=== PATIENT | male | born 1955 | race Caucasian/White ===

== ENCOUNTER 2025-04-04 15:55 | Emergency (ER) | payer MEDICARE, SELFPAY ==
--- NOTE | ~2025-04-04 | CT_ITS ---
EXAMINATION: CT HEAD WITHOUT CONTRAST CLINICAL INFORMATION: Fall with head strike. COMPARISON: None available. TECHNIQUE: Contiguous axial imaging was performed from the skull base to vertex without intravenous administration of contrast. This CT examination was performed using dose optimization techniques as appropriate, variously including the following: *Automated exposure control *Adjustment of mA and/or kV according to patient size (this includes techniques or standardized protocols for targeted exams where dose is matched to indication/reason for exam; i.e. extremities or head) *Use of iterative reconstruction technique FINDINGS: There is no evidence of intracranial hemorrhage or extra-axial fluid collection. There is no mass effect, or edema. No CT evidence of acute territorial infarct. Ventricles, sulci, and cisterns are normal in size and configuration for patient age. No hydrocephalus. No midline shift. Negative hyperdense MCA sign. Negative insular ribbon sign. Patchy periventricular and deep white matter hypoattenuation is consistent with mild to moderate small vessel ischemic changes. 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 Normal pituitary. Mild atheromatous calcification of the bilateral carotid siphons and V4 segments vertebral arteries bilaterally. Globes and orbital contents image normally. Extracranial soft tissues demonstrate a small left frontal scalp hematoma. The paranasal sinuses, mastoid air cells, and tympanic cavities are normally aerated. No suspicious bony abnormalities. Calvarium and skull base appears intact. There are comminuted mildly displaced nasal bone fractures, presumably acute. No additional fractures. CT/CT head/brain wo IV con IMPRESSION: 1. No acute intracranial abnormality. No calvarial or skull base fracture. 2. Comminuted mildly displaced nasal bone fractures, presumably acute. 3. Small left frontal scalp hematoma. Electronically signed by: Iván Royal MD 04/04/2025 04:35 PM EDT
--- NOTE | ~2025-04-04 | XR_ITS ---
EXAMINATION: Left hand and left wrist. CLINICAL INDICATION: Fall. Pain. COMPARISON: None. TECHNIQUE: 3 views left hand and 4 views left wrist. FINDINGS: LEFT HAND: There is mild loss of PIP and DIP joint spaces without bony erosive changes. No osteophytes, loose bodies are soft tissue swelling seen. There is no visible acute fracture or dislocation. LEFT WRIST: The carpal bones, intercarpal joints and carpometacarpal joints are normal. No fracture or dislocation seen. No abnormal joint effusion. Scaphoid bone appears intact. XR/XR hand LT min 3V IMPRESSION: Unremarkable left hand and left wrist exam. Electronically signed by: Simon Washington MD 04/04/2025 04:40 PM EDT
--- NOTE | ~2025-04-04 | XR_ITS ---
EXAMINATION: Left hand and left wrist. CLINICAL INDICATION: Fall. Pain. COMPARISON: None. TECHNIQUE: 3 views left hand and 4 views left wrist. FINDINGS: LEFT HAND: There is mild loss of PIP and DIP joint spaces without bony erosive changes. No osteophytes, loose bodies are soft tissue swelling seen. There is no visible acute fracture or dislocation. LEFT WRIST: The carpal bones, intercarpal joints and carpometacarpal joints are normal. No fracture or dislocation seen. No abnormal joint effusion. Scaphoid bone appears intact. XR/XR wrist LT min 3V IMPRESSION: Unremarkable left hand and left wrist exam. Electronically signed by: Simon Washington MD 04/04/2025 04:40 PM EDT
--- NOTE | ~2025-04-04 | CT_ITS ---
EXAMINATION: CT CERVICAL SPINE WITHOUT CONTRAST CLINICAL INFORMATION: Fall with head strike, neck pain/C-spine clearance. COMPARISON: None available. TECHNIQUE: Spiral CT imaging of the cervical spine performed in axial plane without contrast. Multiplanar reformatted images were constructed from the axial data set. This CT examination was performed using dose optimization techniques as appropriate, variously including the following: *Automated exposure control *Adjustment of mA and/or kV according to patient size (this includes techniques or standardized protocols for targeted exams where dose is matched to indication/reason for exam; i.e. extremities or head) *Use of iterative reconstruction technique FINDINGS: CORONAL ALIGNMENT: -There is a minimal right convex scoliosis, apex at C5. SAGITTAL ALIGNMENT: -Mild straightening of the normal lordosis is present. -No traumatic subluxation. -There is a 2 mm degenerative retrolisthesis of C5 on C6. C1-C2 AND CRANIOCERVICAL JUNCTION: -Intact and normally aligned. Mild to moderate degenerative changes of the anterior atlantoaxial joint. VERTEBRAL BODIES AND FACETS: -No definite fracture, compression deformity, or suspicious bone lesion. -Normal facet alignment bilaterally. There is fusion of the C3-4 facets on the right. There are multilevel hypertrophic degenerative facet changes bilaterally. DISCS: -Severe disc degeneration is present spanning C3-C6. -Disc spaces otherwise maintained. CENTRAL CANAL: -No evidence of high-grade central canal narrowing or large disc herniation allowing for modality limitations. -There is probable moderate central canal stenosis at C5-6. PREVERTEBRAL AND PARAVERTEBRAL SOFT TISSUES: -There is no prevertebral or paravertebral soft tissue edema, swelling, or abnormal fluid collection. -The thyroid gland is grossly normal. -There are moderate carotid bulb calcifications bilaterally. Retropharyngeal course of the right ICA. LUNG APICES: -Clear bilaterally. CT/CT cervical spine wo IV con IMPRESSION: 1. No CT evidence of acute cervical spine fracture or injury. 2. Moderate degenerative spondylosis most significant spanning C3-C6. Electronically signed by: Iván Royal MD 04/04/2025 04:41 PM EDT
[2025-04-04 15:59] VITALS: BP 204/98; PULSE 115; RESP 24; TEMP 35.6; O2SAT 98; BMI 32.1
--- NOTE | 2025-04-04 16:01 | ED.GENADULT ---
HPI - General Adult General Chief complaint: Fall Stated complaint: Fall Time Seen by Provider: 04/04/25 17:01 Source: patient Mode of arrival: ambulatory Limitations: no limitations History of Present Illness ED Provider: Dr. Davis Mo HPI narrative: 69-year-old male with no past medical history who presents to the emergency department for evaluation fall that occurred while he was walking down hill earlier today. Patient states that there was an unexpected incline and he gained speed going down the incline, this caused him to lose his balance and fall forward striking his face on the pavement. Patient denied any loss of consciousness. He states that he was helped up and since that time he has been able to walk without any difficulty. The patient does have abrasions to his forehead, upper lip and nose-these abrasions or bleeding. He is complaining of pain in his left hand and wrist. He denied headache, nausea, vomiting since the fall. He denied chest pain, back pain or abdominal pain. He has no lower extremity pain. The patient states that his doctor retired and he has not seen a doctor and a long time. He does not know in his last tetanus shot was given. Related Data Allergies Allergy/AdvReac Type Severity Reaction Status Date / Time No Known Allergies Allergy Verified 04/04/25 16:01 Review of Systems Review of Systems: Yes all other systems are reviewed and are negative [facility] Past Medical History [facility] Narrative: Social history: The patient is here in the emergency department with a his girlfriend. He occasionally drinks alcohol. He denies tobacco use. He denies drug use. Social History Social History Alcohol intake: former Smoked in Last 30 Days: No Use of substances other than those prescribed or required for medical reasons: No Advance Directives: No Advance Directives Information Provided: No Physical Exam ED Vital Signs: Vital Signs - 24 hr 04/04/25 15:59 Temperature 96.1 F L Pulse Rate 115 H Respiratory Rate 24 H Blood Pressure 204/98 H Pulse Oximetry 98 Oxygen Delivery Method Room Air BMI result Body Mass Index 32.1 Vital signs revealed an elevated blood pressure of 204/98 and elevated heart rate of 115. Exam: General: Awake, alert in no distress Head: Normocephalic, patient has a hematoma to his forehead with the abrasions to his forehead, cheeks bilaterally, upper lip. EENT: PERRL, sclera and conjunctiva are normal, mouth with no erythema or exudates Neck: Tender cervical spine, no adenopathy Lung: breath sounds symmetric, no wheezing, no rales and no rhonchi Chest: symmetric movement, nontender Heart: regular rate and rhythm, normal S1, S2 no murmurs or rubs Abdomen: soft, non-tender, nondistended, normal bowel sounds Back: no vertebral tenderness, no CVAT Extremities: no deformities, moves all extremities symmetrically, no edema, abrasions to his left hand over the 2nd and 3rd metacarpal bones, increased tenderness palpation over the 3rd metacarpal bone, no obvious deformity Neuro: Awake, alert, oriented, normal speech, cranial nerves 2-12 intact, moves all extremities symmetrically Psych: Pleasant, cooperative Course Course Course Narrative: This is a Rapid Medical Examination (RME) performed by Meena Tsang PA-C in triage. Full HPI, ROS, assessment and treatment plan per primary provider in the Main ED. Hx: Patient is a 69 yo male who presents s/p mechanical fall while walking down hill earlier today. reports falling onto his face. Denies use of ambulation assistance devices. Denies LOC and neck pain. Not on any blood thinners. Rates pain 3/10. also reports pain to L hand. PE/vitals: AOX3. Plan: imaging Medical Decision Making Medical Decision Making MDM Narrative: 69-year-old male with no past medical history who presents to the emergency department for evaluation fall that occurred while he was walking down hill earlier today. Patient states that there was an unexpected incline and he gained speed going down the incline, this caused him to lose his balance and fall forward striking his face on the pavement. Patient denied any loss of consciousness. He states that he was helped up and since that time he has been able to walk without any difficulty. The patient does have abrasions to his forehead, upper lip and nose-these abrasions or bleeding. He is complaining of pain in his left hand and wrist. He denied headache, nausea, vomiting since the fall. He denied chest pain, back pain or abdominal pain. He has no lower extremity pain. Patient had an elevated blood pressure and elevated heart rate. Physical examination revealed multiple abrasions to his face as well as hematoma to his forehead. Patient had abrasions to his left hand with tenderness palpation over the 2nd and 3rd metacarpals. No obvious deformity. Differential diagnosis: ?Includes but is not limited to skull fracture, intracranial bleed, cervical fracture, cervical sprain forehead scalp hematoma, facial abrasions, nasal abrasion, nasal fracture, left hand fracture, left wrist fracture Course: 17:[address] scan of his head and cervical spine revealed no intracranial bleed, fracture cervical fracture. The patient does have min of the displaced comminuted nasal bone fractures with no septal fracture. X-rays of the left hand and wrist revealed no acute fractures. Patient's abrasions were cleaned and dressed with bacitracin and nonstick dressing. Patient was given a Tdap IM vaccination in the emergency department. Patient was advised to apply bacitracin twice a day to his facial abrasions and to wash your signs of infection. I did discuss the nasal bone fractures with him and at this time I do not think that he is going to need further treatment. Patient did have elevated blood pressure and elevated heart rate. The patient was advised to check his blood pressure 3 times a week for the next 2-3 weeks and to establish care with a PCP to discuss possible treatment of elevated blood pressure. He was advised to take Tylenol for pain. He was given printed and verbal instructions and discharged home. Differential Diagnosis Differential Diagnoses: The differential diagnosis associated with the presentation includes (See above) Admission/Observation Consideration of admission/observation: Escalation of care including admission/observation considered (Yes) Radiology Impression Discussion of test interpretation with radiology: I have reviewed the radiologist's reading. Radiologist Impression: 3 views left hand and 4 views left wrist. FINDINGS: LEFT HAND: There is mild loss of PIP and DIP joint spaces without bony erosive changes. No osteophytes, loose bodies are soft tissue swelling seen. There is no visible acute fracture or dislocation. LEFT WRIST: The carpal bones, intercarpal joints and carpometacarpal joints are normal. No fracture or dislocation seen. No abnormal joint effusion. Scaphoid bone appears intact. XR/XR wrist LT min 3V IMPRESSION: Unremarkable left hand and left wrist exam. Electronically signed by: Simon Washington MD 04/04/2025 04:40 PM EDT 3 views left hand and 4 views left wrist. FINDINGS: LEFT HAND: There is mild loss of PIP and DIP joint spaces without bony erosive changes. No osteophytes, loose bodies are soft tissue swelling seen. There is no visible acute fracture or dislocation. LEFT WRIST: The carpal bones, intercarpal joints and carpometacarpal joints are normal. No fracture or dislocation seen. No abnormal joint effusion. Scaphoid bone appears intact. XR/XR hand LT min 3V IMPRESSION: Unremarkable left hand and left wrist exam. Electronically signed by: Simon Washington MD 04/04/2025 04:[address] head/brain wo IV con IMPRESSION: 1. No acute intracranial abnormality. No calvarial or skull base fracture. 2. Comminuted mildly displaced nasal bone fractures, presumably acute. 3. Small left frontal scalp hematoma. Electronically signed by: Iván Royal MD 04/04/2025 04:[address] cervical spine wo IV con IMPRESSION: 1. No CT evidence of acute cervical spine fracture or injury. 2. Moderate degenerative spondylosis most significant spanning C3-C6. Electronically signed by: Iván Royal MD 04/04/2025 04:41 PM EDT Independent Historian Clinical information obtained from an independent historian. History obtained from or confirmed by: Other (Girlfriend) Discharge Plan Discharge Clinical Impression: Contusion of dorsum of left hand, Need for tetanus, diphtheria, and acellular pertussis (Tdap) vaccine Closed head injury Qualifiers: Encounter type: initial encounter Qualified Code(s): S09.90XA - Unspecified injury of head, initial encounter Facial abrasion Qualifiers: Encounter type: initial encounter Qualified Code(s): S00.81XA - Abrasion of other part of head, initial encounter Closed fracture nasal bone Qualifiers: Encounter type: initial encounter Qualified Code(s): S02.2XXA - Fracture of nasal bones, initial encounter for closed fracture Contusion of left wrist Qualifiers: Encounter type: initial encounter Qualified Code(s): S60.212A - Contusion of left wrist, initial encounter Patient Disposition: Home, Self-Care Instructions: Abrasion (ED), Nasal Fracture (ED) Additional Instructions: Apply bacitracin twice a day to the abrasions on your face for 1 week to try to prevent an infection of these wounds Watch for signs of infection which would include increased redness, increased swelling, drainage of pus, red streaks going away from the wounds. If you think your wounds are infected you can follow up with a an urgent care clinic, your PCP or return to the emergency department for evaluation. You did break the bones of your nose, at this time I do not think that you need any further treatment however if you have difficulty breathing out of 1 side of your nose with the other then you may need to follow up with an ENT doctor for re-evaluation. The CT scan radiology impression is at the end of this note. The CT scan of your head and neck revealed no broken bones in your skull or neck and no bleeding in your brain. The x-rays of your left hand and left wrist revealed no broken bones. You received a tetanus, diphtheria and pertussis vaccination (Tdap) intramuscularly today. This has good for 5 years. Between 5 and 10 years you will need a another tetanus shot if you have a contaminated wound. You will need a booster shot in 10 years. Your blood pressure here in the emergency department was elevated at 204/98 (normal is 120/80). High blood pressure instructions: The reason to check your blood pressure at home is to give your provider an idea of what your blood pressure does when you are not in the provider's office. Take your blood pressure in the mornings, Mondays , Wednesdays and Fridays and then write down for the next 2-3 weeks. Make sure you only check your blood pressure in the mornings and do not repeat your blood pressure readings even if they are high. I want you to discuss these readings with your primary care provider If your provider thinks that your blood pressures are too high, then they may start you on a blood pressure medication. If you get started on blood pressure medication continue to take your blood pressure 3 times a week. You can take up to 2-6 weeks before blood pressure medication lower your high blood pressure medication or start you on a 2nd high blood pressure. Follow-up with your provider to discuss your blood pressure readings in 2 weeks Please return to the emergency department if your symptoms get worse or if you develop any new symptoms that are concerning to you. If you do not have a primary care provider - call any of the below numbers to establish and follow up with a primary care provider. [facility] PCP referral line ?for adult primary care and family practice medicine. [facility] [phone] [place] [id number] While waiting to establish your new primary care physician,for non-emergency needs you can go ?to: [facility](Urgent Care) . [address] [address] [facility](Urgent Care) provides services to ages 18 and over. Open Wednesday-Wednesday: 7 [address] head/brain wo IV con IMPRESSION: 1. No acute intracranial abnormality. No calvarial or skull base fracture. 2. Comminuted mildly displaced nasal bone fractures, presumably acute. 3. Small left frontal scalp hematoma. Electronically signed by: Iván Royal MD 04/04/2025 04:35 PM Print Language: Occitan
[2025-04-04 18:27] VITALS: BP 188/95; PULSE 108; RESP 16; TEMP 36.8; O2SAT 97
[2025-04-04] MEDS: Diphth,Pertus(ACell),Tet Adult 0.5 ML SYRINGE IM (18:44)
[2025-04-04 19:32] VITALS: BP 182/96; PULSE 100; RESP 18; TEMP 36.8; O2SAT 98
== END 2025-04-04 19:33 | disposition home or self-care (01) ==
PROVIDERS: Emergency Provider Emergency Medicine Emergency Medical Services
DX: S02.2XXA Fracture of nasal bones, initial encounter for closed fracture (principal); S00.81XA Abrasion of other part of head, initial encounter; S60.212A Contusion of left wrist, initial encounter; S00.03XA Contusion of scalp, initial encounter; M25.532 Pain in left wrist; R51.9 Headache, unspecified; M54.2 Cervicalgia; M79.642 Pain in left hand; W17.81XA Fall down embankment (hill), initial encounter; Z91.81 History of falling; Y93.01 Activity, walking, marching and hiking; Y92.9 Unspecified place or not applicable; Y99.8 Other external cause status; Z23 Encounter for immunization; Z79.899 Other long term (current) drug therapy
CPT/HCPCS: 70450; 72125; 73110; 73130; 90471; 90715; 99284

== ENCOUNTER → 2025-04-04 16:03 | Outpatient (BNV) | payer MEDICARE, SELFPAY | PROVIDERS: Emergency Provider Emergency Medicine Emergency Medical Services; Visit Provider Radiology Diagnostic Radiology | DX: M47.812 Spondylosis without myelopathy or radiculopathy, cervical region (principal); S00.03XA Contusion of scalp, initial encounter; S02.2XXA Fracture of nasal bones, initial encounter for closed fracture; M79.642 Pain in left hand; M25.532 Pain in left wrist; W19.XXXA Unspecified fall, initial encounter | CPT/HCPCS: 70450; 72125; 73110; 73130 ==

== ENCOUNTER 2025-05-04 15:46 | Outpatient (AMB) | payer MEDICARE, OTHER, SELFPAY ==
[2025-05-04 15:54] VITALS: BP 160/80; PULSE 88; TEMP 36.5; O2SAT 98
--- NOTE | 2025-05-04 15:54 | AM.OFFWIN_ITS ---
Intake Vital Signs 05/04/25 15:54 Height 6 ft BP 160/80 H Blood Pressure Location Lt brachial Position Sitting Pulse 88 Pulse Source Pulse Oximeter Temp 97.7 F Temp Source Oral Pulse Oximetry (%) 98 Intake Visit Reasons: RUN LEAD High BP 175/99, no headaches, no dizziness Allergies No Known Allergies Allergy (Verified 05/04/25 15:54) Do you need a note to return to daycare/school/sports/work: No HPI HPI Comments History of Present Illness Details History of Present Illness - The patient is a 69-year-old male pres enting with his with concerns about elevated blood pressure. - The patient experienced a fall while w alking to his vehicle, resulting in injuries that required emergency room evaluation. - During the emergency room visit, it wa s noted that the patient's blood pressure was elevated to 204/98. - The patient has a history of hypertens ion, previously managed with medications such as timolide and aldomet, but has not been under regular medical care since his primary care physician retired, many years ago. He has not taken any medications in many years. - The patient has not had a recent physi demond examination and is currently without a primary care physician. - Today, he denies any chest pain, dizzi ness, headaches or shortness of breath. Review of Systems - Neurological: Denies headaches, dizzin ess, or lightheadedness at the time of the fall. - Musculoskeletal: Reports knee pain and issues with foot mobility following the fall. All systems reviewed and are unremarkable except as noted in HPI Physical Exam General: Cooperative, healthy appearing, comfortable, no acute distress and well developed Orientation: Patient oriented x3 Limitations: ambulating with cane Head: Normal to inspection Ears: Hearing grossly normal bilaterally Nose: Normal External nose present Face and sinus: Normal facial exam Eyes: Appearance normal, both eyes and all related structures Neck: Normal visual inspection and Yes full ROM Respiratory: Normal respiratory effort and able to speak in complete sentences. Skin: No rashes or lesions noted Neuro: Patient oriented x3 Extremities: moving all extremities normally. PFSH Social History Alcohol intake: former Physical Exam Vital Signs: Last Vital Signs Temp 97.7 F 05/04/25 15:54 Pulse 88 05/04/25 15:54 BP 160/80 H 05/04/25 15:54 Pulse Ox 98 05/04/25 15:54 Assessment & Plan Assessment & Plan (1) Elevated blood pressure reading in office without diagnosis of hypertension: Code(s): R03.0 - Elevated blood-pressure reading, without diagnosis of hypertension Plan: Plan Patient was informed and verbally consented to the use of an ambient scribe for clinic note documentation during this visit. - The patient needs to establish care with a primary care physician for chronic uncontrolled hypertension. - Discussed the risks of uncontrolled hypertension, including kidney damage and increased risk of stroke. - Was able to obtain a new pt appt with Dr Abreu on 05/07 at 2:45pm, notified pt to call both of his ins co's and tell them Dr Abreu will be his new PCP, for billing and referral purposes. - If he has any acute changes over the weekend and develops any headaches, chest pain, shortness of breath or signs of a stroke, he should go to the Emergency Department. Coding Level of Care Code Est Pt Level 3 (86853) Diagnoses Elevated blood pressure reading in office without diagnosis of hypertension R03.0
== END 2025-05-04 16:23 | disposition home or self-care (01) ==
PROVIDERS: Visit Provider Physician Assistant
DX: R03.0 Elevated blood-pressure reading, without diagnosis of hypertension (principal)

== ENCOUNTER → 2025-05-04 15:46 | Outpatient (BNVA) | payer MEDICARE, OTHER, SELFPAY | PROVIDERS: Visit Provider Physician Assistant | DX: R03.0 Elevated blood-pressure reading, without diagnosis of hypertension (principal) | CPT/HCPCS: 99212 ==

== ENCOUNTER 2025-05-07 14:58 | Outpatient (AMB) | payer MEDICARE, OTHER, SELFPAY ==
--- NOTE | 2025-05-07 14:59 | A.OFFPC_ITS ---
Vital Signs 05/07/25 15:04 BP 178/92 H Blood Pressure Location Lt brachial Position Sitting Pulse 108 H Pulse Source Pulse Oximeter Temp 97.1 F Temp Source Temporal Artery Scan Pulse Oximetry (%) 100 Oxygen Delivery Method Room Air Intake Visit Reasons: Establish Care/New Patient Accompanied by: Spouse Allergies No Known Allergies Allergy (Verified 05/07/25 15:01) Medication List - Last Reconciled 05/07/25 by Marcus Abreu MD No Known Home Meds Tobacco use date assessed: 05/07/25 Fall risk assessment: 1 Fall in past year Last assessed Fall Risk: 05/07/25 Dental Screening Dental Screen Date: 05/07/25 Did you have a dental visit in the last 12 months?: No HPI HPI Comments History of Present Illness Details History of Present Illness The patient is a 69-year-old male presenting for a new patient visit for a health evaluation after not seeing a doctor for over 20 years. He has not had any blood work or been on any medications during this time. The patient reports a history of high blood pressure years ago, for which he was temporarily treated with Timolide but stopped the medication based on a doctor's recommendation. Past surgical history includes a shoulder surgery for an unspecified injury. He recently had a fall after his feet got tangled, causing him to land face-first on a tire. He did not lose consciousness and was evaluated with a CT scan and X- rays, which revealed surface abrasions. He also reports issues with his knee buckling and making noises when going down stairs. The patient has no known allergies and no family history of heart disease, diabetes, or cancer. He denies smoking or using illicit drugs and reports no alcohol consumption in the past six months, though he used to drink beer. Medical History: - Hypertension, previously treated on a temporary basis. - Recent fall with abrasions. Surgical History: - Shoulder surgery, date and procedure u nspecified. Medications: - The patient is not currently taking an y medications. Family History: - Denies family history of heart disease , diabetes, or cancer. Diagnostic Results: - Vital Signs:Blood pressure 178/92 mmHg . - Imaging: A CT scan, full body scan, an d bone x-rays were performed following a recent fall, with unspecified results. Social History - Substance Use: Denies smoking or illic it drug use. - Alcohol Use: Reports no alcohol consum ption in the past six months but previously drank beer. - Employment: Retired from the post offi ce five years ago. - Exercise: Engages in yard work and use s a seated elliptical. - Diet: Advised to reduce salt intake an d avoid processed foods. [facility] Medical History (Updated 05/07/25 @ 15:32 by Marcus Abreu MD) Knee pain Primary hypertension Family History (Updated 05/07/25 @ 15:01 by Dodie Swanson CMA) Mother No problems noted. Father No problems noted. Social History Housing: House Alcohol intake: former Patient Tobacco Use Status: Never used Tobacco service: No Current occupational status: employed and retired Cognitive needs: Yes (cane) Hearing needs: No Vision needs: No Questionnaire PHQ-9 Over the last 2 weeks, how often have you been bothered by any of the following problems? 1. Little interest or pleasure in doing things: not at all 2. Feeling down, depressed, or hopeless: not at all 3. Trouble falling or staying asleep, or sleeping too much: not at all 4. Feeling tired or having little energy: not at all 5. Poor appetite or overeating: not at all 6. Feeling bad about yourself - or that you are a failure or have let yourself or your family down: not at all 7. Trouble concentrating on things, such as reading the newspaper or watching television: not at all 8. Moving or speaking so slowly that other people could have noticed. Or the opposite - being so fidgety or restless that you have been moving around a lot more than usual: not at all 9. Thoughts that you would be better off or of hurting yourself in some way: not at all Total score: 0 Depression Screening Interpretation: Negative Depression Screening Done: Yes 74828 - PHQ-9 Billing: Yes Source: Developed by Drs. Bart Villalpando, Ciarra Luis, Bran Nielson and colleagues, with an educational guero from [employer]. Thrive Questionnaire Date Thrive assessed: 05/07/25 I am a: Patient What is your living situation today?: I have a steady place to live Within the past 12 months, did the food you bought not last and you didn't have the money to get more?: Never true Within the past 12 months, did you worry whether your food would run out before you got money to buy more?: Never true Do you have trouble paying for medicines?: No Do you have trouble getting transportation to medical appointments?: No Do you have trouble paying your heating and electricity bill?: No Do you have trouble taking care of your child, family member or friend?: No Do you have trouble with day-to-day activities such as bathing, preparing meals, shopping, managing finances, etc.?: No Are you currently unemployed and looking for a job?: No Are you interested in more education?: No THRIVE Score: 0 AUDIT C Alcohol Use Questionnaire (AUDIT-C) 1. How often do you have a drink containing alcohol?: Never Total Score: 0 Score Reviewed/Action Taken: Yes RUSTY-7 AMB Questionnaire RUSTY-7 Date RUSTY - 7 assessed: 05/07/25 Feeling nervous, anxious, or on edge: 0 = Not at all Not being able to stop or control worryin = Not at all Worrying too much about different things: 0 = Not at all Trouble relaxin = Not at all Being so restless that it is hard to sit still: 0 = Not at all Becoming easily annoyed or irritable: 0 = Not at all Feeling afraid as if something awful might happen: 0 = Not at all Total RUSTY-7 score (0-4 normal; 5-9 mild; 10-14 moderate; 15-21 severe): 0 Source: Developed by Drs. Bart Villalpando, Ciarra Luis, Bran Nielson and colleagues, with an educational guero from [employer]. RUSTY-7 Assessment Billing RUSTY-7 Assessment Tool: RUSTY-7 Assessment 14846 Review of Systems Narrative Review of Systems - Psychological: Denies depression or anxiety. - Cardiovascular: Denies chest pain. - Respiratory: Denies shortness of breath. - Gastrointestinal: Reports normal urination and bowel movements. Denies nausea and vomiting. - Musculoskeletal: Reports knee buckling and noises when descending stairs. - Neurological: Denies loss of consciousness with a recent fall. All systems reviewed & are unremarkable except as reviewed in HPI and above Physical exam (Primary Care) Vital Signs: Last Vital Signs Temp 97.1 F 05/07/25 15:04 Pulse 108 H 05/07/25 15:04 BP 178/92 H 05/07/25 15:04 Pulse Ox 100 05/07/25 15:04 Oxygen Delivery Method Room Air 05/07/25 15:04 Tobacco/Smoking Status: Tobacco use Status Tobacco use date assessed 05/07/25 05/07/25 15:07 Patient Tobacco Use Status Never used Tobacco 05/07/25 15:07 Depression Screening Interpretation: Negative Thrive Assessment: Date of Thrive Assessment Date Thrive assessed 05/07/25 05/07/25 15:07 Narrative Physical Exam General: +Alert and oriented, Well nourished, No acute distress. Eye: Pupils are equal, round and reactive to light, Intact accommodation, Extraocular movements are intact, Normal conjunctiva, Vision unchanged. HENT: Normocephalic, Atraumatic, Tympanic membranes are clear, Normal hearing, Oral mucosa is moist, No pharyngeal erythema, Ear canals patent. Respiratory: Lungs CTA bilaterally, No wheeze, Respirations are non-labored. Cardiovascular: Regular rate, Regular rhythm, S1 auscultated, S2 auscultated, No murmur, Good pulses equal in all extremities, Normal peripheral perfusion, No edema. Gastrointestinal: Soft, Non-tender, Non-distended, Normal bowel sounds, No organomegaly. Musculoskeletal: Normal range of motion, Normal strength, No tenderness, No swelling, No deformity, Normal gait. Left hand pain due to recent fall, x-ray o rdered for knee due to occasional buckling. Integumentary: Warm, Dry, [place], Intact. Abrasions present on hands, taped. Neurologic: Alert, Oriented, Normal sensory, Normal motor function, No focal defects, Cranial Nerves II-XII are grossly intact, Normal deep tendon reflexes. Psychiatric: Cooperative, Appropriate mood & affect, Normal judgment. No depression or anxiety reported. Office Procedures Flu Questionnaire Does the patient have a severe egg allergy?: No Does the patient have severe life threatening allergies?: No Does the patient have a fever or illness today?: No Has the patient ever had Guillain-[place] Syndrome?: No Has the patient ever had any past reaction to a flu shot?: No Immunizations Fluarix [id number] (PF) 45 mcg (15 mcg x 3)/0.5 mL IM syringe Performing Provider: Marcus Abreu MD Performing [place] [facility] Documented (not given) by: Dodie Swanson CMA on 05/07/25 15:08 Reason Not Given: Patient Refused Coding Level of Care Code New Pt Level 4 (70528) Diagnoses Primary hypertension I10 Acute pain of right knee M25.561 Chronicity: acute Laterality: right Additional Codes PHQ-9 - 98476 - PHQ-9 Billing: Yes ([id number]) RUSTY-7 Assessment Billing - RUSTY-7 Assessment Tool: RUSTY-7 Assessment 47282 ([id number]) Assessment & Plan Assessment & Plan (1) Primary hypertension: Comment: - The patient's blood pressure is severely elevated at 178/92 mmHg. - Initiate treatment with nifedipine 30 mg once daily. - Instructed the patient to monitor his blood pressure at home daily, one hour after taking the medication, and to bring the readings to his next appointment. - Provided counseling on dietary modifications, including reducing salt intake and avoiding processed foods to help lower blood pressure. - Schedule a follow-up appointment in one week to review blood pressure logs and adjust medications as necessary. Code(s): I10 - Essential (primary) hypertension Category: Medical (2) Knee pain: Comment: - The patient reports that his knee occasionally khoi and makes noise when descending stairs. - An X-ray of the knee is ordered to evaluate for underlying pathology. Code(s): M25.569 - Pain in unspecified knee Category: Medical Qualifiers: Chronicity: acute Laterality: right Qualified Code(s): M25.561 - Pain in right knee Plan: Health Maintenance: - Laboratory screening: Ordered comprehensive labs including CBC, electrolytes, kidney and liver function, glucose, hepatitis panel, HIV, cholesterol, syphilis screen, thyroid studies, and vitamin D level. - Cancer Screening: Recommended colonoscopy for colorectal cancer screening as the patient is 24 years overdue. The patient expressed hesitation and deferred the procedure. - Immunizations: Recommended influenza and COVID-19 vaccinations. - Healthy Lifestyle Counseling: Advised on reducing dietary salt, avoiding processed and junk foods, and eating more fresh foods to help manage blood pressure. Patient was informed and verbally consented to the use of an ambient scribe for clinic note documentation during this visit. Plan I have discussed with the patient that his blood pressure is severely elevated at 178/92 mmHg, necessitating immediate treatment. I prescribed nifedipine 30 mg daily and explained the importance of daily blood pressure monitoring at home, with a follow-up in one week to review the results and adjust the regimen as needed. We discussed dietary modifications, specifically reducing salt and avoiding processed foods. I ordered comprehensive baseline lab work and an x-ray of his knee to evaluate his complaint of instability. I also recommended a colonoscopy as a preventative screening measure, explaining the risks of delaying it, but the patient expressed hesitation and wished to defer the procedure. Finally, I recommended he receive his flu and COVID-19 shots. Orders: Orders Comprehensive Met. Panel Today Z00.00 - Encounter for general adult medical e xamination without abnormal findings Hepatitis A,B,C Profile Today Z00.00 - Encounter for general adult medical examination without abnormal findings Lipid Panel Today Z00.00 - Encounter for general adult medical examination without abnormal findings Syphilis Screen Today Z00.00 - Encounter for general adult medical examination without abnormal findings Vitamin D 25-OH Total Today Z00.00 - Encounter for general adult medical examination without abnormal findings XR knee RT 4V Today I10 - Essential (primary) hypertension, M25.569 - Pain in unspecified knee Influenza [id number] Immunization Today Z23 - Encounter for immunization Complete Blood Count Auto Diff Today Z00.00 - Encounter for general adult medical examination without abnormal findings Hemoglobin A1c Today Z00.00 - Encounter for general adult medical examination without abnormal findings HIV Ab/Ag Today Z00.00 - Encounter for general adult medical examination without abnormal findings Microalbumin, Random (w Creat) Today Z00.00 - Encounter for general adult medical examination without abnormal findings TSH reflex Free T4 Today Z00.00 - Encounter for general adult medical examination without abnormal findings Medications: New nifedipine ER 30 mg PO DAILY 14 tabs 0RF Patient Instructions: - Please go across the street to the hospital to have blood work drawn and to get an X-ray of your knee. - Take one tablet of Nifedipine 30 mg by mouth every morning. [facility] - Check your blood pressure every day, one hour after you take your medication. - Please keep a written log of your blood pressure readings and bring it with you to your next appointment. - It is important to reduce the amount of salt in your diet. Avoid junk food, processed foods, and canned foods that contain preservatives. Choose fresh foods whenever possible. - You should get your flu shot and COVID-19 shot. - Return to the clinic for a follow-up visit in one week.
[2025-05-07 15:04] VITALS: BP 178/92; PULSE 108; TEMP 36.2; O2SAT 100
== END 2025-05-07 15:30 | disposition home or self-care (01) ==
LOC: HO.HMCHD 14:58
PROVIDERS: Visit Provider Student in an Organized Health Care Education/Training Program
DX: I10 Essential (primary) hypertension (principal); M25.561 Pain in right knee; Z23 Encounter for immunization

== ENCOUNTER 2025-05-07 14:58 | Outpatient (REF) | payer MEDICARE, OTHER, SELFPAY ==
--- NOTE | ~2025-05-07 | XR_ITS ---
EXAMINATION: XR KNEE, RIGHT CLINICAL INFORMATION: I10 - Essential (primary) hypertension COMPARISON: None available. TECHNIQUE: Views of the right knee. FINDINGS: Severe medial compartment arthritis. Mild lateral and patellofemoral arthritis. No visible acute fracture or dislocation. Small loose bodies anteriorly. Small chronic calcifications in the soft tissues. XR/XR knee RT 4V IMPRESSION: Tricompartment osteoarthritis. Severe medial compartment arthritis. Electronically signed by: Thuan Finn MD 05/08/2025 11:31 AM TRACEY PETIT
[2025-05-07 16:08] LABS: MANUAL DIFF FLAG NO
[2025-05-07 16:23] LABS: Hematocrit 45.0 % (42.0-52.0); Hemoglobin 15.0 g/dl (14.0-18.0); Imm Gran Abs Auto 0.02 X10*3/uL (0.00-0.03); Imm Gran Pct Auto 0.3 % (0.0-0.4); Lymphocytes Absolute Auto 1.1 X10*3/uL (1.2-4.9); Mean Corpuscular HGB Conc 33.3 g/dl (31.0-36.0); Mean Corpuscular Hemoglobin 30.7 pg (27.0-33.0); Mean Corpuscular Volume 92.0 fL (80.0-98.0); NRBC Abs Auto 0.000 X10*3/uL (0.0-0.012); NRBC Pct Auto 0.0 /100WBC (0.0-0.2); Platelet Count 247 X10*3/uL (160-400); Red Blood Count 4.89 X10*6/uL (4.60-5.80); White Blood Count 7.6 X10*3/uL (4.8-10.8)
[2025-05-07 17:08] LABS: Alanine Aminotransferase 31 U/L (0-40); Albumin Level 5.1 g/dL (3.5-5.0); Alkaline Phosphatase 59 U/L (39-117); Anion Gap 14 (12-20); Aspartate Amino Transferase 33 U/L (5-37); Blood Urea Nitrogen 13 mg/dL (9-16); Calcium 9.7 mg/dL (8.4-10.2); Carbon Dioxide 24 mmol/L (22-29); Chloride 105 mmol/L (96-108); Cholesterol 182 mg/dL (<200); Estimated Glomerular Filt Rate > 60; HDL Cholesterol 46 mg/dL (>40); Potassium 4.3 mmol/L (3.3-5.1); Sodium 139 mmol/L (135-145); Total Protein 8.1 g/dL (6.5-8.0); Triglycerides 118 mg/dL (<150)
[2025-05-07 17:16] LABS: Microalbum/Creatinine Ratio Ur 7.0 ug/mg cr (<30)
[2025-05-08 08:05] LABS: HBS Num1 0.02 mIU/mL (0-7.99); HBc Num1 0.06 S/CO (0.00-0.79); HBsAGNum1 0.42 S/CO (0.00-0.99); HIV Num 1 0.08 S/CO (0.00-0.99); Hepatitis A Antibody IgM 0.22 Index (0-0.79); Hepatitis B Surface Antigen Negative (Negative); ~HepC Num1 0.08 S/CO (0.00-0.79); ~Hepatitis A Antibody IgM Nonreactive (Nonreactive); ~Hepatitis B Surface Antibody NONREACTIVE (Nonreactive); ~Hepatitis C Antibody Nonreactive (Nonreactive)
[2025-05-08 08:35] LABS: Syphilis Screen Nonreactive (Nonreactive)
== END 2025-05-07 14:59 | disposition home or self-care (01) ==
LOC: HO.LAB 14:58
PROVIDERS: Visit Provider Student in an Organized Health Care Education/Training Program
DX: Z00.00 Encounter for general adult medical examination without abnormal findings (principal); I10 Essential (primary) hypertension; M25.561 Pain in right knee; E55.9 Vitamin D deficiency, unspecified; Z13.1 Encounter for screening for diabetes mellitus; Z28.21 Immunization not carried out because of patient refusal
CPT/HCPCS: 36415; 73564; 80053; 80061; 82043; 82306; 82570; 83036; 84443; 85025; 86704; 86706; 86709; 86780; 86803; 87340; 87389; 90471; 96127; 99202

== ENCOUNTER → 2025-05-07 16:15 | Outpatient (BNV) | payer MEDICARE, OTHER, SELFPAY | PROVIDERS: Visit Provider Radiology Diagnostic Ultrasound | DX: M17.11 Unilateral primary osteoarthritis, right knee (principal) | CPT/HCPCS: 73564 ==